=== PATIENT | male | born 1955 | race Caucasian/White ===

== ENCOUNTER 2021-04-03 15:01 | Emergency (ER) | payer MEDICARE, BC ==
--- NOTE | 2021-04-03 16:00 | EDM.PDOC ---
ED HPI GENERAL MEDICAL PROBLEM - General Chief Complaint: ENT Problem Stated Complaint: NOSE INJURY WITH DRILL Time Seen by Provider: 04/03/21 15:40 Source of Information: Reports: Patient, Family History Limitations: Reports: No Limitations - History of Present Illness INITIAL COMMENTS - FREE TEXT/NARRATIVE: 66-year-old male with a persistent epistaxis after traumatic injury to the right side of the nose. A drill was attached to a wench when it slipped and swung around and the battery pack of the drill struck him hard on the right side of the face and nose. Since that time he has had persistent bleeding especially on the left side of the nose. He has mild swelling of the right zygomatic area but no visual disturbance, double vision, no loss of consciousness or dental pain. Onset: Sudden Duration: Hour(s): (Within the last hour) Location: Reports: Face Associated Symptoms: Reports: No Other Symptoms - Related Data Allergies Allergy/AdvReac Type Severity Reaction Status Date / Time No Known Allergies Allergy Verified 04/03/21 15:27 Home Meds: Home Meds Aspirin/Caffeine [Anacin 400-32 mg Tablet] 1 tab PO DAILY 04/03/21 [History] Empagliflozin [Jardiance] 10 mg PO DAILY 04/03/21 [History] Ezetimibe/Simvastatin [Vytorin 10-10 mg Tablet] 1 tab PO DAILY 04/03/21 [History] Fexofenadine [Belén] 180 mg PO DAILY 04/03/21 [History] Fish Oil/Norton-3 Fatty Acids [Fish Oil 1,000 MG] 1 cap PO DAILY 04/03/21 [History] Montelukast [Singulair] 10 mg PO DAILY 04/03/21 [History] Naproxen Sodium 1 - 2 tab PO DAILY 04/03/21 [History] Olmesartan/Hydrochlorothiazide [Benicar HCT 20-12.5 MG] 1 tab PO DAILY 04/03/21 [History] Orphenadrine [Norflex] 100 mg PO BID 04/03/21 [History] Saw Bicknell 1 cap PO DAILY 04/03/21 [History] Sertraline [Zoloft] 50 mg PO DAILY 04/03/21 [History] Tumeric/Ging/[place]/Oreg/Capryl [Candicidal Capsule] 1 tab PO DAILY 04/03/21 [History] metFORMIN [Glucophage XR] 750 mg PO BID 04/03/21 [History] Social & Family History - Tobacco Use Tobacco Use Status *Q: Never Tobacco User - Alcohol Use Number of Drinks Per Day: 2 - Recreational Drug Use Recreational Drug Use: No ED ROS ENT - Review of Systems Review Of Systems: See Below Constitutional: Denies: Fever, Chills HEENT: Reports: Nosebleed Respiratory: Reports: No Symptoms Cardiovascular: Reports: No Symptoms GI/Abdominal: Reports: No Symptoms : Reports: No Symptoms Skin: Denies: Bruising (No bruising or abrasion over the injured area) Neurological: Denies: Headache ED EXAM, ENT - Physical Exam Exam: See Below Exam Limited By: No Limitations General Appearance: Alert, No Apparent Distress Eye Exam: Bilateral Eye: Normal Inspection Nose: Other (He has slight swelling over the nasal bridge, tenderness to palpation including the medial aspect of the zygomatic area of the right cheek. There is persistent oozing of fresh blood from the left nares.) Neck: Supple, Non-Tender Respiratory/Chest: No Respiratory Distress Neurological: Alert, Oriented, No Motor/Sensory Deficits Psychiatric: Normal Affect, Normal Mood Skin: Warm, Dry Course - Vital Signs Last Recorded V/S: Last Vital Signs Temp 97.2 F 04/03/21 15:38 Pulse 77 04/03/21 15:38 Resp 18 04/03/21 15:38 BP 164/86 H 04/03/21 15:38 Pulse Ox 95 04/03/21 15:38 - Orders/Labs/Meds Meds: Medications Discontinued Medications Generic Name Dose Route Start Last Admin Trade Name Mikayla PRN Reason Stop Dose Admin Silver Nitrate 1 each 04/03/21 16:25 04/03/21 16:38 Silver Nitrate Applicator Each TOP 04/03/21 16:26 1 each ONETIME ONE Administration - Re-Assessments/Exams Free Text/Narrative Re-Assessment/Exam: 04/03/21 16:56 The left nares was cleaned of blood and the persistent oozing appeared to be coming from just under the turbinate on the left side. Pressure was applied and the patient was sent for a maxillofacial CT without contrast. While awaiting for CT report, the blood was again cleared out of the left side and silver nitrate sticks were used to cauterize the area just under the turbinate and on the turbinate itself. Pressure was reapplied. 04/03/21 16:59 IMPRESSION: 1. Mildly comminuted nondisplaced nasal fracture, nondisplaced fracture of the anterior maxillary spines, and probable fracture of the bony nasal septum. 2. Probable hemorrhage within the right nasal cavity and maxillary sinuses. Above results were discussed with the patient, the bleeding appears to have stopped. He was placed on cephalexin 500 mg 3 times a day, given 10 hydrocodone for extra pain control, and will continue with cool compresses to the face. Departure - Departure Time of Disposition: 17:21 Disposition: Home, Self-Care 01 Clinical Impression: Epistaxis due to trauma Nasal bone fractures Qualifiers: Encounter type: initial encounter Fracture type: closed Qualified Code(s): S02.2XXA - Fracture of nasal bones, initial encounter for closed fracture - Discharge Information Instructions: Nasal Fracture, [id number], Nosebleed, [id number] Referrals: PCP,None [Primary Care Provider] - Forms: ED Department Discharge Care Plan Goals: Cold compresses to the face for the rest of today may help with bruising, swelling, and recurring bleeding. 20 minutes an hour is a reasonable timeline. Ibuprofen or Aleve will help with discomfort, add stronger pain medications if needed. Return anytime if bleeding is persistent and you need further treatment, and consider rechecking with the ENT when you get home to [place]. Take antibiotic 3 times a day until gone. Sepsis Event Note (ED) - Evaluation Sepsis Screening Result: No Definite Risk
[2021-04-03] MEDS ORDERED: Silver Nitrate Applicator Each TOP ONE (16:25)
--- NOTE | 2021-04-03 16:59 | CRLCT ---
For Patients: As a result of the Century Cures Act, medical imaging exams and procedure reports are released immediately into your electronic medical record. You may view this report before your referring provider. If you have questions, please contact your health care provider. INDICATION: trauma to face, stabilizing jamila daugherty hit his face CT FACE WITHOUT CONTRAST TECHNIQUE: Multidetector axial CT imaging was performed through the face without contrast. Coronal and sagittal reconstructions were generated. FINDINGS: Facial soft tissue swelling is present, greatest over the nose. There is an acute-appearing, mildly comminuted, nondisplaced nasal fracture. There is buckling of the bony nasal septum likely representing additional fracture, and there is mildly comminuted nondisplaced fracture of the anterior maxillary spines. Soft tissue density likely representing hemorrhage is seen in the right nasal cavity and there is a small amount of hyperdense fluid, likely representing blood, within the maxillary sinuses bilaterally. The other paranasal sinuses are normally aerated aside from scattered minimal mucosal thickening. The mandible and temporomandibular joints are intact. Mastoid air cells are clear. Degenerative changes are seen in the cervical spine. IMPRESSION: 1. Mildly comminuted nondisplaced nasal fracture, nondisplaced fracture of the anterior maxillary spines, and probable fracture of the bony nasal septum. 2. Probable hemorrhage within the right nasal cavity and maxillary sinuses. CLARICE INGRAM MD [facility] Dictated by Robert Ingram MD @ 04/03/2021 4:57:10 PM Please note that all CT scans at this facility use dose modulation, iterative reconstruction, and/or weight-based dosing when appropriate to reduce radiation dose to as low as reasonably achievable. Dictated by: Robert Ingram MD @ 04/03/2021 16:58:02 (Electronically Signed)
== END 2021-04-03 17:31 | disposition home or self-care (01) ==
LOC: JP.ED 15:01
DX: S02.2XXA Fracture of nasal bones, initial encounter for closed fracture (principal); R04.0 Epistaxis; Z79.84 Long term (current) use of oral hypoglycemic drugs; Z79.899 Other long term (current) drug therapy; W20.8XXA Other cause of strike by thrown, projected or falling object, initial encounter
CPT/HCPCS: 30901; 70486; 99283-25